=== PATIENT | male | born 1965 | race Native Hawaiian/Other Pacific Islander ===

== ENCOUNTER 2018-07-10 08:24 | Outpatient (CLI) | payer BC | END 2018-07-10 19:14 | disposition home or self-care (01) | LOC: RAD 08:24 | DX: M25.519 Pain in unspecified shoulder (principal) ==

== ENCOUNTER 2018-07-28 13:52 | Outpatient (CLI) | payer BC | END 2018-07-28 21:52 | disposition home or self-care (01) | LOC: MRI 13:52 | DX: M19.011 Primary osteoarthritis, right shoulder (principal) ==

== ENCOUNTER 2018-08-15 10:09 | Outpatient (CLI) | payer BC | END 2018-08-15 22:24 | disposition home or self-care (01) | LOC: RAD 10:09 | DX: M25.511 Pain in right shoulder (principal) ==

== ENCOUNTER 2022-08-27 08:01 | Outpatient (CLI) | payer BC | END 2022-08-27 19:10 | disposition home or self-care (01) | LOC: RAD 08:01 | PROVIDERS: ATTEND Physician Assistant | DX: M25.511 Pain in right shoulder (principal) ==

== ENCOUNTER 2023-02-25 08:44 | Outpatient (CLI) | payer OTHER | END 2023-02-25 18:56 | disposition home or self-care (01) | LOC: CT 08:44 | PROVIDERS: ATTEND Nurse Practitioner | DX: E78.49 Other hyperlipidemia (principal); Z13.6 Encounter for screening for cardiovascular disorders ==